=== PATIENT | female | born 1945 | race Caucasian/White ===

== ENCOUNTER 2018-07-04 09:51 | Emergency (ER) | payer MEDICARE ==
[2018-07-04] MEDS ORDERED: Metoprolol Tartrate IV* 1 MG/ML 5 ML VIAL IV ONE (10:08)
[2018-07-04] MEDS ORDERED: NS 0.9% 1000 ML* 1,000 ML IV ONE (10:08)
[2018-07-04 10:38] LABS: ABS Basophils 0 10^3/ul (0-0.2); ABS Eosinophils 0 10^3/ul (0-0.6); ABS Lymphocytes 0.9 10^3/ul (1.0-4.8); ABS Monocytes 0.5 10^3/ul (0-0.8); ABS Neutrophils 7.9 10^3/ul (1.5-7.7); ABS Nucleated RBC 0 10^3/ul; Eosinophil % 0.1 % (0-6); Hematocrit 46 % (35-47); Hemoglobin 15.8 g/dl (12.0-16.0); Lymphocyte % 9.9 % (25-47); Mean Corpuscular HGB Conc 35 g/dl (31-36); Mean Corpuscular Hemoglobin 32 pg (27-31); Mean Corpuscular Volume 91 fL (80-97); Mean Platelet Volume 8.6 um3 (7.4-10.4); Nucleated Red Blood Cells % 0.1; Platelet Count 243 10^3/ul (150-450); Red Blood Count 4.99 10^6/ul (4.00-5.40); Red Cell Distribution Width 13 % (10.5-15); White Blood Count 9.4 10^3/ul (3.5-10.8)
--- NOTE | 2018-07-04 10:46 | ED ---
HPI Cardiac - HPI Summary HPI Summary: Patient is a 72 y/o F w/ c/o nausea,diarrhea and palpitations. Patient had a right knee replacement around three weeks ago. She states that she has not been experiencing knee pain but notes that she has had nausea, diarrhea and general fatigue for the past few days. This morning, she reports high BP and palpitations. Patient measured her BP multiple times, highest systolic was 160. Chest pain, abdominal pain and SOB are denied. No Hx of irregular heartbeat is reported. Patient took metoprolol, amlodipine this morning. Patient is also on a diuretic, Keflex for frequent UTIs, and lovenox. Former smoker, stopped 26 years ago, o2 sat is 95 on RA. She denies difficulty walking. On triage, pain is denied, nothing is noted to aggravate/alleviate Sx. Home medications and allergies are reviewed. - History of Current Complaint Chief Complaint: EDDysrhythmPalp Stated Complaint: HIGH BP/HR Time Seen by Provider: 07/04/18 09:53 Hx Obtained From: Patient Onset/Duration: Started Hours Ago - palpitations this morning, Started Days Ago - nausea, diarrhea and general fatigue, Still Present Timing: Constant, Lasting Days - nausea, diarrhea and general fatigue Current Severity: None Pain Intensity: 0 Pain Scale Used: 0-10 Numeric - 0/10 Character: Other: - palpitations Aggravating Factor(s): Nothing Alleviating Factor(s): Nothing Associated Signs and Symptoms: Positive: Nausea, Other: - diarrhea, fatigue. Negative: Chest Pain, Shortness of Breath, Abdominal Pain, Vomiting - Additional Pertinent History Primary Care Physician: NUBIA - Allergy/Home Medications Allergies/Adverse Reactions: Allergies Allergy/AdvReac Type Severity Reaction Status Date / Time aspirin Allergy See Comment Verified 07/04/18 10:47 oxycodone Allergy Hives Verified 07/04/18 10:47 pollen extracts Allergy Sneezing Verified 07/04/18 10:47 valsartan Allergy Hives Verified 07/04/18 10:47 Home Medications: Home Medications Cephalexin 500 mg PO DAILY 07/04/18 [History Confirmed 07/04/18] Clonazepam 0.5 mg PO DAILY PRN 07/04/18 [History Confirmed 07/04/18] Cranberry 1 tab PO DAILY 07/04/18 [History Confirmed 07/04/18] Famotidine 40 mg PO DAILY 07/04/18 [History Confirmed 07/04/18] Fosamax (NF) 70 mg pe PO WEEKLY 07/04/18 [History Confirmed 07/04/18] Metoprolol Tartrate 100 mg PO DAILY 07/04/18 [History Confirmed 07/04/18] Potassium Chlor TAB* [Klor Con ER TAB 10 MEQ*] 20 meq PO BID 07/04/18 [History Confirmed 07/04/18] Probiotic 1 tab PO DAILY 07/04/18 [History Confirmed 07/04/18] Spironolactone [Aldactone 25 MG-] 25 mg PO BID 07/04/18 [History Confirmed 07/04] PMH/Surg Hx/FS Hx/Imm Hx Cardiovascular History: Reports: Hx Hypercholesterolemia, Hx Hypertension Denies: Hx Angina, Hx Coronary Artery Disease, Hx Myocardial Infarction, Hx Valvular Heart Disease Respiratory History: Denies: Hx Asthma, Hx Chronic Obstructive Pulmonary Disease (COPD) GI History: Reports: Other GI Disorders - GERD History: Reports: Other Problems/Disorders - 1 UTI in past Musculoskeletal History: Reports: Other Musculoskeletal History - osteoarthritis Denies: Hx Osteoporosis Sensory History: Reports: Hx Contacts or Glasses Opthamlomology History: Reports: Hx Contacts or Glasses - Cancer History Hx Chemotherapy: No Hx Radiation Therapy: No - Surgical History Surgery Procedure, Year, and Place: tonsilectomy (when patient was 6 years old) . patial left knee replacement 2014. vaginal hysterectomy 1995 Infectious Disease History: No Infectious Disease History: Denies: Traveled Outside the [place] in Last 30 Days - Family History Known Family History: Positive: Cardiac Disease - Social History Alcohol Use: None Substance Use Type: Reports: None Smoking Status (MU): Never Smoked Tobacco Review of Systems Positive: Fatigue Positive: Palpitations. Negative: Chest Pain Negative: Shortness Of Breath Positive: Diarrhea, Nausea. Negative: Abdominal Pain, Vomiting All Other Systems Reviewed And Are Negative: Yes Physical Exam - Summary Physical Exam Summary: Appearance: Well appearing, no pain distress Skin: warm, dry, reflects adequate perfusion; well-healed right knee replacement scar Head/face: normal Eyes: EOMI, CONSUELO ENT: mucous membranes moist Neck: supple, non-tender Respiratory: CTA, breath sounds present Cardiovascular: RRR, pulses symmetrical Abdomen: non-tender, soft Bowel Sounds: present Musculoskeletal: normal, strength/ROM intact, no BLE edema Neuro: normal, sensory motor intact, A&Ox3 Triage Information Reviewed: Yes Vital Signs On Initial Exam: Initial Vitals Temp Pulse Resp BP Pulse Ox 97.8 F 102 16 158/95 99 07/04/18 09:55 07/04/18 09:55 07/04/18 09:55 07/04/18 09:55 07/04/18 09:55 Vital Signs Reviewed: Yes Diagnostics - Vital Signs Vital Signs Temp Pulse Resp BP Pulse Ox 07/04/18 09:55 97.8 F 102 16 158/95 99 - Laboratory Result Diagrams: 07/04/18 10:23 07/04/18 10:23 Lab Statement: Any lab studies that have been ordered have been reviewed, and results considered in the medical decision making process. - EKG 1023 Cardiac Rate: NL - rate of 90 BPM EKG Rhythm: Sinus Rhythm ST Segment: Non-Specific Summary of EKG Findings: Normal Jeremiah. Normal Interval Re-Evaluation - Re-Evaluation First Eval Re-Evaluation Time: 11:30 Change: Improved Comment: Patient reports improvement in Sx. She will be discharged to home and is instructed to follow up with PCP. She is agreeable with this plan. Disposition - Course Course Of Treatment: Patient with pounding heartbeat and elevated blood pressure today without complaint of irregularity. Top heart rate was about 105. Blood pressure approached 160. That was improved here. She was given hydration for her GI symptoms with significant improvement. Her heart rate was down into the 80s after walking around the ER briskly with an O2 sat of 97% on room air. She denied any chest pain or shortness of breath and had been treated with Lovenox up until Saturday as she is postoperative. She will follow up closely with her primary care physician. - Differential Dx - Cardiopulmonary Differential Diagnoses - Cardiopulmonary: Other - Elevated blood pressure, palpitations, arrhythmia, dehydration, gastroenteritis, pulmonary embolism - Diagnoses Provider Diagnoses: Gastroenteritis, Elevated blood pressure reading Discharge - Sign-Out/Discharge Documenting (check all that apply): Patient Departure - discharge - Discharge Plan Condition: Improved Disposition: HOME Prescriptions: Loperamide CAP* [Imodium CAP*] 2 mg PO Q4H PRN #20 cap PRN Reason: Diarrhea Ondansetron HCl [Zofran] 4 mg PO TID PRN #12 tablet PRN Reason: Nausea Patient Education Materials: Gastroenteritis (ED) Referrals: Stalin Milian MD [Primary Care Provider] - Additional Instructions: Call today to schedule prompt follow-up with her primary care physician. Return with chest pain, difficulty breathing, unable to keep down liquids, worse , new symptoms or other concerns. - Billing Disposition and Condition Condition: IMPROVED Disposition: Home - Attestation Statements Document Initiated by Scribe: Yes Documenting Scribe: Iker Osorio Provider For Whom Natashaibe is Documenting (Include Credential): Ovi Cook MD Scribe Attestation: Iker Lyons, scribed for Ovi Cook MD on 07/04/18 at 1155. Scribe Documentation Reviewed: Yes Provider Attestation: The documentation as recorded by the Iker del castillo accurately reflects the service I personally performed and the decisions made by me, Ovi Cook MD
[2018-07-04] MEDS ORDERED: Ondansetron INJ* 2 MG/ML VIAL IV ONE (10:48)
[2018-07-04] MEDS ORDERED: Ondansetron INJ* 2 MG/ML VIAL ONE (10:49)
[2018-07-04 11:06] LABS: EGFR Non-African American 67.8 (>60)
[2018-07-04 12:04] VITALS: BP 139/77
== END 2018-07-04 12:02 | disposition home or self-care (01) ==
LOC: ED 09:51
DX: K52.9 Noninfective gastroenteritis and colitis, unspecified (principal); I10 Essential (primary) hypertension; R00.2 Palpitations; Z87.440 Personal history of urinary (tract) infections; Z96.653 Presence of artificial knee joint, bilateral; Z88.6 Allergy status to analgesic agent; Z88.5 Allergy status to narcotic agent; Z88.8 Allergy status to other drugs, medicaments and biological substances; Z87.891 Personal history of nicotine dependence
CPT/HCPCS: 36415; 80053; 84484; 85025; 93005; 96374; 99283; J2405

== ENCOUNTER 2018-07-29 17:23 | Emergency (ER) | payer MEDICARE ==
--- NOTE | 2018-07-29 17:40 | ED ---
HPI Chest Pain - HPI Summary HPI Summary: The pt is a 72 y/o female presenting to [facility] c/o midsternal chest heaviness since this afternoon. The sx started with palpitations. She notes elevated blood pressure and heart rate as recorded below. The non-radiating pain is rated 3-4/10 in severity. She notes nausea but denies calf pain, and LE pain. Pt had right TKR on 06/16/18. She also reports chronic UTI's with 5 day hx increased frequency and pain with urination. Pt takes daily cephalexin for urinary tract infection suppression per Dr. Olson. When the UTI sxs began pt increased the cephalexin to tid without improvement in symptoms. She called her PCP yesterday who instructed her to DC cephalexin and to send in a urine sample today 07/29/2018. Pt developed the chest heaviness and came to the ED. PMHx: HTN ,HLD No DM, nonsmoker. [facility] her [facility]. Ot was in [facility] on 07/04/18 with similar symptoms and DC'd home. Patient's home vital sign recordings: Date Systolic BP Diastolic BP HR (bpm) 07/21/2018 124 82 73 2017 from 16:30 hrs 187 90 112 16:40 hrs 165 90 96 - 147 86 96 - 172 88 97 - 180 101 114 Home Medications Medication Instructions Recorded Confirmed Type Fexofenadine (NF) [[place] 180 180 mg PO DAILY 12/25/12 07/04/18 History (NF)] Hydrochlorothiazide TAB* 12.5 mg PO DAILY 12/25/12 07/04/18 History [Hydrodiuril TAB*] Simvastatin [Zocor] 10 mg PO QPM 12/25/12 07/04/18 History amLODIPine TAB* [Norvasc 5 mg TAB*] 5 mg PO DAILY 12/25/12 07/04/18 History Cephalexin 500 mg PO DAILY 07/04/18 07/04/18 History Clonazepam 0.5 mg PO DAILY PRN 07/04/18 07/04/18 History Cranberry 1 tab PO DAILY 07/04/18 07/04/18 History Famotidine 40 mg PO DAILY 07/04/18 07/04/18 History Fosamax (NF) 70 mg pe PO WEEKLY 07/04/18 07/04/18 History Loperamide CAP* [Imodium CAP*] 2 mg PO Q4H PRN #20 cap 07/04/18 Rx Metoprolol Tartrate 100 mg PO DAILY 07/04/18 07/04/18 History Ondansetron HCl [Zofran] 4 mg PO TID PRN #12 tablet 07/04/18 Rx Potassium Chlor TAB* [Klor Con ER 20 meq PO BID 07/04/18 07/04/18 History TAB 10 MEQ*] Probiotic 1 tab PO DAILY 07/04/18 07/04/18 History Spironolactone [Aldactone 25 MG-] 25 mg PO BID 07/04/18 07/04/18 History - History of Current Complaint Chief Complaint: EDDysrhythmPalp Time Seen by Provider: 07/29/18 17:32 Hx Obtained From: Patient Onset/Duration: Started Hours Ago - this afternoon, Still Present Time of Onset: 15:30 Timing: Constant Initial Severity: Moderate Current Severity: Moderate Pain Intensity: 4 Pain Scale Used: 0-10 Numeric Chest Pain Location: Mid Sternal Chest Pain Radiates: No Character: Heaviness Aggravating Factor(s): Nothing Alleviating Factor(s): Nothing Associated Signs and Symptoms: Positive: Negative - LE pain, Nausea. Negative: Calf Pain/Swelling - Risk Factors Pulmonary Embolism Risk Factors: Recent Surgery - Additional Pertinent History Primary Care Physician: NUBIA - Allergy/Home Medications Allergies/Adverse Reactions: Allergies Allergy/AdvReac Type Severity Reaction Status Date / Time aspirin Allergy See Comment Verified 07/04/18 10:47 oxycodone Allergy Hives Verified 07/04/18 10:47 pollen extracts Allergy Sneezing Verified 07/04/18 10:47 valsartan Allergy Hives Verified 07/04/18 10:47 Home Medications: Home Medications Alendronate (NF) [Fosamax (NF)] 70 mg PO WEEKLY 07/29/18 [History Confirmed ] Cephalexin CAP* [Keflex 500 CAP*] 500 mg PO QPM 07/29/18 [History Confirmed ] Cranberry 500 mg PO DAILY 07/29/18 [History Confirmed 07/29/18] Famotidine TAB* [Pepcid 20 MG TAB*] 40 mg PO DAILY 07/29/18 [History Confirmed 07/29/18] Fexofenadine (NF) [[place] 180 (NF)] 180 mg PO DAILY PRN 07/29/18 [History Confirmed 07/29/18] Lactobacillus Acidophilus [Probiotic] 1 cap PO BID 07/29/18 [History Confirmed 07/29/18] Metoprolol Succinate XL TAB* [Toprol XL TAB*] 100 mg PO DAILY 07/29/18 [History Confirmed 07/29/18] Simvastatin TAB(NF) [Zocor 10 MG (NF)] 10 mg PO QPM 07/29/18 [History Confirmed 07/29/18] Spironolactone TAB* [Aldactone TAB 25 MG*] 25 mg PO BID 07/29/18 [History Confirmed 07/29/18] amLODIPine TAB* [Norvasc 5 mg TAB*] 5 mg PO DAILY 07/29/18 [History Confirmed ] clonazePAM TAB(*) [Klonopin TAB(*)] 0.5 mg PO BEDTIME PRN 07/29/18 [History Confirmed 07/29/18] PMH/Surg Hx/FS Hx/Imm Hx Previously Healthy: No Endocrine/Hematology History: Denies: Hx Diabetes Cardiovascular History: Reports: Hx Hypercholesterolemia, Hx Hypertension Denies: Hx Angina, Hx Coronary Artery Disease, Hx Myocardial Infarction, Hx Valvular Heart Disease Respiratory History: Denies: Hx Asthma, Hx Chronic Obstructive Pulmonary Disease (COPD) GI History: Reports: Hx Gastroesophageal Reflux Disease History: Reports: Other Problems/Disorders - multiple UTI's in past, Klebsiella, E Coli, proteus on urinary suppression Musculoskeletal History: Reports: Hx Arthritis, Other Musculoskeletal History - osteoarthritis Denies: Hx Osteoporosis Sensory History: Reports: Hx Contacts or Glasses Opthamlomology History: Reports: Hx Contacts or Glasses - Cancer History Hx Chemotherapy: No Hx Radiation Therapy: No - Surgical History Surgery Procedure, Year, and Place: tonsilectomy (when patient was 6 years old) . patial left knee replacement 2014. vaginal hysterectomy 1995. right knee replacement 06/16/18, [place] Infectious Disease History: No Infectious Disease History: Denies: Traveled Outside the [place] in Last 30 Days - Family History Known Family History: Positive: Cardiac Disease, Other - PE in mother, [place] - Social History Occupation: Retired - nurse Lives: With Family Alcohol Use: None Substance Use Type: Reports: None Smoking Status (MU): Former Smoker Review of Systems Constitutional: Negative Positive: Chest Pain Respiratory: Negative Positive: Nausea Positive: dysuria, frequency, pain - with urination Musculoskeletal: Negative - Calf pain, LE pain Skin: Negative Neurological: Negative Psychological: Normal All Other Systems Reviewed And Are Negative: Yes Physical Exam - Summary Physical Exam Summary: Appearance: Well-appearing, moderate pain distress, well-nourished Skin: Warm, color reflects adequate perfusion, dry Head: Normal Head/Face inspection, atraumatic Eyes: Conjunctiva clear ENT: Normal inspection Neck: Supple, no nodes, no JVD Respiratory: Lungs clear, normal breath sounds, no respiratory distress Cardio: RRR, No murmur, pulses normal, brisk capillary refill Abdomen: Soft, nontender Bowel sounds: Present Musculoskeletal: Strength Intact/ROM intact, no calf tenderness, no edema. right knee incision dry, intact, without redness, warmth or swelling Psychological: Normal Neuro: Alert, muscle tone normal, no focal deficit Triage Information Reviewed: Yes Vital Signs On Initial Exam: Initial Vitals Temp Pulse Resp BP Pulse Ox 98.3 F 114 18 163/86 98 07/29/18 17:25 07/29/18 17:25 07/29/18 17:25 07/29/18 17:25 07/29/18 17:25 Vital Signs Reviewed: Yes Diagnostics - Vital Signs Vital Signs Temp Pulse Resp BP Pulse Ox 07/29/18 17:25 98.3 F 114 18 163/86 98 - Laboratory Result Diagrams: 07/29/18 18:07 07/29/18 18:07 Lab Statement: Any lab studies that have been ordered have been reviewed, and results considered in the medical decision making process. - Radiology CXR Radiology Interpretation Completed By: ED Physician Summary of Radiographic Findings: Preliminary interpretation: No acute disease. - CT Chest/Thorax CTA CT Interpretation Completed By: Radiologist Summary of CT Findings: IMPRESSION: 1. No pulmonary emboli. 2. Left upper lobe pulmonary nodule. Based on current Sofya criteria, consider CT, PET/CT , or tissue biopsy at 3 months. The ED physician reviewed this radiology report. - EKG 17:29 Cardiac Rate: Tachycardia - 106 bpm EKG Rhythm: Sinus Tachycardia EKG Comparison: No Significant Change - Compared to 07/04/18 Summary of EKG Findings: Normal IVCT, Normal QTC, L axis deviation (-25) Re-Evaluation - Re-Evaluation First Eval Re-Evaluation Time: 19:35 Change: Improved Comment: chest pain is resolved spontaneosly. Advised of need for CTA with CP and recent surg and fam hx PE. Pt agrees. Pt still tachy 105, BP145/79. Thinks she may have a UTI, usually takes keflex daily prophylactically. States she submitted a urine sample here, but it was into "a hat", so wants to provide a better clean catch specimen. No abd pain, N, V. Will give another liter of IV NS. Second Eval Re-Evaluation Time: 20:59 Change: Improved Comment: discussed antibiotic choice to treat probable UTI. Reviewed prior urine cultures and sensitivities. Pt does not want to take cipro due to "black box warnings". Will try Bactrim, although it has made her nauseous in the past. Will give first dose Bactrim now and 40MEQ KCL Third Eval Re-Evaluation Time: 21:50 Change: Improved Comment: remains chest pain free. HR 99, BP 130's systolic. No N, V after Bactrim. Advised second troponin is zero. Agrees to discharge. Chest Pain Course/Dx - Course Course Of Treatment: A 72 year-old F presents to the ED with a CC of midsternal chest heaviness since this afternoon. She notes palpitations, elevated blood pressure and heart rate measured at home, nausea and increased frequency of urinartion and pain with urination and hx chronic UTIs on daily suppressive cephalexin. Pt is s/p right TKR on 06/16/18. She denies calf pain, and LE pain.A physical exam is unremarkable. A CXR reveals no acute disease on preliminary reading by Dr. Wolfe. A chest/thorax CTA reveals no pulmonary emboli an a left upper lobe pulmonary nodule. An EKG reveals sinus tachycardia with no acute changes. Pt had two troponin levels that were zero. Her potassium was 3.4 and replaced with KCl 40 MEQ po. In the ED course, pt was given Iodixanol 72 ml IV, N.s 0.9% 2000 ml IV, and Ondansetron 4mg IV, KCL po and Bactrim DS which improved her symptoms. Pt not given ASA due to possible allergy. Patient will be discharged with a final Dx of CP, palpitations, HTN in poor control and UTI. Pt is agreeable with this plan. Allergies noted. - Chest Pain Differential Diagnosis/HQI/PQRI: Acute UT, ACS, CHF, GI Disease, Pulmonary Embolism - Diagnoses Provider Diagnoses: Chest pain, UTI (urinary tract infection), Heart palpitations, Hypertension, poor control, Hypokalemia Discharge - Sign-Out/Discharge Documenting (check all that apply): Patient Departure - DC - Discharge Plan Condition: Stable Disposition: HOME Prescriptions: Ondansetron ODT TAB* [Zofran 4 MG Odt TAB*] 4 mg PO BID PRN #20 tab.odt PRN Reason: Nausea Sulfamethox/Trimethoprim DS* [Bactrim DS 800/160 TAB*] 1 tab PO BID #20 tab Patient Education Materials: Chest Pain (ED), Urinary Tract Infection in Women (ED) Referrals: Mir Olson MD [Medical Doctor] - 2 Days Stalin Milian MD [Primary Care Provider] - 2 Days Additional Instructions: You were evaluated for chest pain, hypertension and tachycardia while in the ER today. We did not find any serious cause for the chest pain today. We have given you a copy of the CTA report showing no pulmonary embolus. We have submitted a urine culture. We gave you the first dose of Bactrim DS, which you should take twice a day for 10 days. You may take the Bactrim with ondansetron, so you won't be nauseous. But you should have definite follow up to know the organism and sensitivities based on the culture to know if you should continue the Bactrim. You were also given one dose of potassium 40 MEQ for a K+ of 3.4, (normal is 3.5). Continue all of your current medications. Follow up with Dr. Rukhsana Gant MD in 2 days. Also follow up with Dr. Olson in 2 days. Return to ED for any new or worsening symptoms. - Billing Disposition and Condition Condition: STABLE Disposition: Home - Attestation Statements Document Initiated by Scribe: Yes Documenting Scribe: Merry Romano Provider For Whom Scribe is Documenting (Include Credential): Dr. Macarena Wolfe MD Scribe Attestation: IMerry , scribed for Dr. Macarena Wolfe MD on 07/30/18 at 0247. Scribe Documentation Reviewed: Yes Provider Attestation: The documentation as recorded by the scribeMerry accurately reflects the service I personally performed and the decisions made by me, Dr. Macarena Wolfe MD Status of Scribe Document: Viewed
[2018-07-29 18:18] LABS: ABS Basophils 0 10^3/ul (0-0.2); ABS Eosinophils 0.1 10^3/ul (0-0.6); ABS Lymphocytes 1.6 10^3/ul (1.0-4.8); ABS Monocytes 0.5 10^3/ul (0-0.8); ABS Nucleated RBC 0 10^3/ul; Eosinophil % 0.7 %; Hematocrit 44 % (35-47); Hemoglobin 15.2 g/dl (12.0-16.0); Lymphocyte % 17.2 %; Mean Corpuscular HGB Conc 35 g/dl (31-36); Mean Corpuscular Hemoglobin 32 pg (27-31); Mean Corpuscular Volume 92 fL (80-97); Mean Platelet Volume 8.6 fL (7.4-10.4); Nucleated Red Blood Cells % 0; Platelet Count 186 10^3/ul (150-450); Red Blood Count 4.79 10^6/ul (4.00-5.40); Red Cell Distribution Width 13 % (10.5-15); White Blood Count 9.2 10^3/ul (3.5-10.8)
[2018-07-29] MEDS ORDERED: Ondansetron INJ* 2 MG/ML VIAL IV ONE (18:18)
[2018-07-29 18:26] LABS: INR 0.95 (0.77-1.02)
[2018-07-29] MEDS ORDERED: NS 0.9% 1000 ML* 1,000 ML BOLUS SCH (18:30)
[2018-07-29 18:37] LABS: EGFR Non-African American 60.9 (>60)
--- OUTSIDE RECORDS SUMMARY | 2018-07-29 18:37 | XMS REPORT | Continuity of Care Document ---
:1945 External Reference #:[id number] Author Name Stalin Milian M.D. Address [address] [place] [address] [place] [address] Care Team Providers Name Role Phone Stalin Milian III, MD Primary Care Physician Unavailable Payers Type Date Identification Numbers Payment Provider Subscriber Policy Number: [id number] Medicare Elva Cortez PayID: [id number] [address] [place] [address] Policy Number: [id number] [facility] lEva Cortez PayID: [id number] [address] [place] [address] Advance Directives Description No Information Available Problems Date Description Provider Status Onset: 05/29/2017 Postmenopausal osteoporosis Stalin Milian M.D. Active Onset: 05/29/2017 Impaired fasting glycaemia Stalin Milian M.D. Active Onset: 05/08/2017 Degenerative joint disease involving Stalin Milian M.D. Active multiple joints Onset: 05/08/2017 Gastroesophageal reflux disease Stalin Milian M.D. Active Onset: 05/08/2017 Hyperlipidemia Stalin Milian M.D. Active Onset: 05/08/2017 Essential hypertension Stalin Milian M.D. Active Family History Description No Information Available Social History Type Date Description Comments Sex Unknown Marital Status ETOH Use Denies alcohol use Tobacco Use Start: Unknown End: Patient is a former Quit 1985; max 1 Unknown smoker ppd, began age 19 Smoking Status Reviewed: 07/09/18 Patient is a former Quit 1985; max 1 smoker ppd, began age 19 Exercise Exercises regularly stretch band routine Type/Frequency most days Allergies, Adverse Reactions, Alerts Date Description Reaction Status Severity Comments 05/08/2017 Diovan Active Moderate Hives 05/08/2017 Oxycodone Active Moderate hives 05/08/2017 Aspirin Active chooses not to take 05/08/2017 Ibuprofen Active 05/08/2017 Naproxen Active Medications Medication Date Status Form Strength Qnty SIG Indications Ordering Provider Derick Mendoza 05/08 Active Capsules 10Meq 180ca 2 by mouth Stalin E. /2017 ER ps once a day Kei Milian Metoprolol 05/29 Active Tablets 100mg 90tab Take One I10 Stalin E. Succinate ER 24HR s Tablet By Rukhsana, Mouth Every M.D. Day Alendronate Sodium 05/29 Active Tablets 70mg 12tab Take 1 M81.0 Stalin E. s Tablet By Rukhsana, Mouth Every M.D. Week Multi Complete 05/08 Active Capsules 30cap daily Stalin E. s Kei Milian Famotidine 05/08 Active Tablets 40mg 90tab Take One Stalin E. s Tablet By Rukhsana, Mouth Every M.D. Day Spironolactone Active Tablets 25mg 180ta 1 by mouth Stalin E. / bs twice daily Kie Milian Simvastatin Active Tablets 10mg 90tab take 1 Stalin E. / s tablet by Rukhsana, mouth at M.D. bedtime Clonazepam Active Tablets 0.5mg 30tab 1 by mouth Stalin E. / s as needed anuj Milian sleep M.DAudrey Ansley Allergy Active Tablets 60mg 1 by mouth Unknown /0000 every day Cephalexin Active Capsules 500mg 1 by mouth Unknown /0000 daily in pm. Hydrochlorothiazid Active Capsules 12.5mg 90cap Take One Stalin E. e /0000 s Capsule By Rukhsana, Mouth Every M.D. Day Amlodipine Active Tablets 5mg 90tab Take One Stalin E. Besylate / s Tablet By Rukhsana, Mouth Every M.D. Day Cranberry Active Tablets 450mg 1 by mouth Unknown /0000 every day Calcium 600 Active Tablets 600mg 1 by mouth Unknown /0000 every day Estrace Active Cream 0.1mg/GM use one Unknown /0000 applicator full two times weekly Atenolol Hx Tablets 100mg 1 1/2 tabs I10 Unknown /0000 by mouth - every day 05/29 Omeprazole Hx Capsules 20mg 1 by mouth Unknown /0000 DR every day - 05/08 Klor-Con M20 Hx Tablets 20Meq 90tab 1 by mouth Stalin Thapa /0000 FARNAZ walker every day Libra Milian M.D. 05/08 Immunizations CPT Code Status Date Vaccine Reaction Lot # [id number] Given 06/01/2018 Fluzone High Dose 80225 Given 05/08/2017 Pneumococcal Conjugate Vaccine 13 no reaction [id number] Valent For Intramuscular Use 17132 Given 03/14/2012 Pneumonia Vaccine 24497 Given 02/01/2012 Tdap - Tetanus/Diptheria/Acellular Pertussis Vital Signs Date Vital Result Comment 07/09/2018 9:12am Height 64.75 inches 5'4.75" Weight 161.00 lb Heart Rate 81 /min BP Systolic Sitting 136 mmHg BP Diastolic Sitting 90 mmHg O2 % BldC Oximetry 94 % BMI (Body Mass Index) 27.0 kg/m2 05/08/2018 9:22am Height 64.75 inches 5'4.75" Weight 171.00 lb Heart Rate 68 /min BP Systolic 118 mmHg BP Diastolic 68 mmHg O2 % BldC Oximetry 95 % BMI (Body Mass Index) 28.7 kg/m2 11/05/2017 9:06am Weight 175.00 lb Heart Rate 60 /min BP Systolic Sitting 138 mmHg BP Diastolic Sitting 82 mmHg O2 % BldC Oximetry 97 % 05/29/2017 9:05am Height 65 inches 5'5" Weight 176.25 lb Heart Rate 65 /min BP Systolic Sitting 140 mmHg BP Diastolic Sitting 78 mmHg Body Temperature 97.5 F O2 % BldC Oximetry 97 % BMI (Body Mass Index) 29.3 kg/m2 05/08/2017 9:12am Height 65 inches 5'5" Weight 179.25 lb Heart Rate 61 /min BP Systolic Sitting 144 mmHg BP Diastolic Sitting 80 mmHg Body Temperature 97.9 F O2 % BldC Oximetry 96 % BMI (Body Mass Index) 29.8 kg/m2 Results Test Date Facility Test Result H/L Range Note Comp Metabolic Panel 07/04/2018 [facility] Sodium 137 mmol/L N 135-[address] [place] [address] [phone] Potassium 3.5 mmol/L N 3.5-5.0 Chloride 103 mmol/L N 101-111 Co2 Carbon Dioxide 23 mmol/L N 22-32 Anion Gap 11 mmol/L N 2-11 Glucose 141 mg/dL High 70-100 Blood Urea Nitrogen 19 mg/dL N 6-24 Creatinine 0.83 mg/dL N 0.51-0.95 BUN/Creatinine Ratio 22.9 High 8-20 Calcium 10.2 mg/dL N 8.6-10.3 Total Protein 7.5 g/dL N 6.4-8.9 Albumin 4.5 g/dL N 3.2-5.2 Globulin 3.0 g/dL N 2-4 Albumin/Globulin Ratio 1.5 N 1-3 Total Bilirubin 0.50 mg/dL N 0.2-1.0 Alkaline Phosphatase 63 U/L N 34-104 Alt 21 U/L N 7-52 Ast 19 U/L N 13-39 Egfr Non- 67.8 >60 Egfr 82.0 >60 1 Laboratory test 07/04/2018 [facility] Troponin-I 0.00 ng/mL < 0.[address] (TnI) [place] [address] [phone] CBC Auto Diff 07/04/2018 [facility] White Blood 9.4 N 3.5- 10.[address] Count 10^3/[place] [address] [phone] Red Blood Count 4.99 10^6/uL N 4.00-5.40 Hemoglobin 15.8 g/dL N 12.0-16.0 Hematocrit 46 % N 35-47 Mean Corpuscular Volume 91 fL N 80-97 Mean Corpuscular Hemoglobin 32 pg High 27-31 Mean Corpuscular HGB Conc 35 g/dL N 31-36 Red Cell Distribution Width 13 % N 10.5-15 Platelet Count 243 10^3/uL N 150-450 Mean Platelet Volume 8.6 um3 N 7.4-10.4 Abs Neutrophils 7.9 10^3/uL High 1.5-7.7 Abs Lymphocytes 0.9 10^3/uL Low 1.0-4.8 Abs Monocytes 0.5 10^3/uL N 0-0.8 Abs Eosinophils 0 10^3/uL N 0-0.6 Abs Basophils 0 10^3/uL N 0-0.2 Abs Nucleated RBC 0 10^3/uL Granulocyte % 84.1 % High 38-83 Lymphocyte % 9.9 % Low 25-47 Monocyte % 5.4 % N 0-7 Eosinophil % 0.1 % N 0-6 Basophil % 0.5 % N 0-2 Nucleated Red Blood Cells % 0.1 Laboratory test 05/02/2018 [facility] Hemoglobin A1c 5.3 % N 4.0-5.[address] (Glyco HGB) [place] [address] [phone] Comp Metabolic 05/02/2018 [facility] Sodium 140 N 135-[address] mmol/[place] [address] [phone] Potassium 4.0 mmol/L N 3.5-5.0 Chloride 105 mmol/L N 101-111 Co2 Carbon Dioxide 29 mmol/L N 22-32 Anion Gap 6 mmol/L N 2-11 Glucose 106 mg/dL High 70-100 Blood Urea Nitrogen 22 mg/dL N 6-24 Creatinine 0.92 mg/dL N 0.51-0.95 BUN/Creatinine Ratio 23.9 High 8-20 Calcium 9.4 mg/dL N 8.6-10.3 Total Protein 6.9 g/dL N 6.4-8.9 Albumin 4.5 g/dL N 3.2-5.2 Globulin 2.4 g/dL N 2-4 Albumin/Globulin Ratio 1.9 N 1-3 Total Bilirubin 0.70 mg/dL N 0.2-1.0 Alkaline Phosphatase 62 U/L N 34-104 Alt 20 U/L N 7-52 Ast 20 U/L N 13-39 Egfr Non- 60.2 >60 Egfr 72.8 >60 3 Lipid Profile 05/02/2018 [facility] Triglycerides 100 mg/dL 4 (Trig/Chol/HDL) [address] [place] [address] [phone] Cholesterol 171 mg/dL 5 HDL Cholesterol 42.4 mg/dL 6 LDL Cholesterol 109 mg/dL 7 CBC Auto Diff 05/02/2018 [facility] White Blood 7.1 10^3/uL N 3.5-10.[address] [place] [address] [phone] Red Blood Count 5.10 10^6/uL N 4.00-5.40 Hemoglobin 16.5 g/dL High 12.0-16.0 Hematocrit 48 % High 35-47 Mean Corpuscular Volume 93 fL N 80-97 Mean Corpuscular Hemoglobin 32 pg High 27-31 Mean Corpuscular HGB Conc 35 g/dL N 31-36 Red Cell Distribution Width 13 % N 10.5-15 Platelet Count 168 10^3/uL N 150-450 Mean Platelet Volume 8.8 um3 N 7.4-10.4 Abs Neutrophils 4.7 10^3/uL N 1.5-7.7 Abs Lymphocytes 1.8 10^3/uL N 1.0-4.8 Abs Monocytes 0.5 10^3/uL N 0-0.8 Abs Eosinophils 0.1 10^3/uL N 0-0.6 Abs Basophils 0 10^3/uL N 0-0.2 Abs Nucleated RBC 0.1 10^3/uL Granulocyte % 66.4 % N 38-83 Lymphocyte % 25.1 % N 25-47 Monocyte % 7.0 % N 0-7 Eosinophil % 1.0 % N 0-6 Basophil % 0.5 % N 0-2 Nucleated Red Blood Cells % 0.9 Laboratory test 05/29/2017 [facility] Hemoglobin A1c 5.6 5-7 finding Comp Metabolic Panel 05/22/2017 [facility] Sodium 137 mmol/L N 133-[address] [place] [address] [phone] Potassium 3.9 mmol/L N 3.5-5.0 Chloride 103 mmol/L N 101-111 Co2 Carbon Dioxide 28 mmol/L N 22-32 Anion Gap 6 mmol/L N 2-11 Glucose 134 mg/dL High 70-100 Blood Urea Nitrogen 18 mg/dL N 6-24 Creatinine 0.86 mg/dL N 0.51-0.95 BUN/Creatinine Ratio 20.9 High 8-20 Calcium 9.5 mg/dL N 8.6-10.3 Total Protein 7.1 g/dL N 6.4-8.9 Albumin 4.4 g/dL N 3.2-5.2 Globulin 2.7 g/dL N 2-4 Albumin/Globulin Ratio 1.6 N 1-3 Total Bilirubin 0.60 mg/dL N 0.2-1.0 Alkaline Phosphatase 72 U/L N 34-104 Alt 23 U/L N 7-52 Ast 21 U/L N 13-39 Egfr Non- 65.2 N >60 Egfr 83.9 N >60 8 Lipid Profile 05/22/2017 [facility] Triglycerides 134 mg/dL N 9 (Trig/Chol/HDL) [address] [place] [address] [phone] Cholesterol 156 mg/dL N 10 HDL Cholesterol 41.1 mg/dL N 11 LDL Cholesterol 88 mg/dL N 12 Laboratory 05/22/2017 [facility] Hepatitis C Nonreactive N Nonreactive test finding [address] [place] [address] [phone] 1 Because ethnic data is not always readily available, this report includes an eGFR for both -Americans and non- Americans. The National Kidney Disease Education Program (NKDEP) does not endorse the use of the MDRD equation for patients that are not between the ages of 18 and 70, are , have extremes of body size, muscle mass, or nutritional status, or are non- or non-. According to the National Kidney Foundation, irrespective of diagnosis, the stage of the disease is based on the level of kidney function: Stage Description GFR(mL/min/1.73 m(2)) 1 Kidney damage with normal or decreased GFR 90 2 Kidney damage with mild decrease in GFR 60-89 3 Moderate decrease in GFR 30-59 4 Severe decrease in GFR 15-29 5 Kidney failure <15 (or dialysis) 2 Therapeutic target for the treatment of diabetes mellitus patients is <7% HBA1C, and in selective patients <6.0%. Please refer to [employer] diabetic care guidelines for further information. 3 Because ethnic data is not always readily available, this report includes an eGFR for both -Americans and non- Americans. The National Kidney Disease Education Program (NKDEP) does not endorse the use of the MDRD equation for patients that are not between the ages of 18 and 70, are , have extremes of body size, muscle mass, or nutritional status, or are non- or non-. According to the National Kidney Foundation, irrespective of diagnosis, the stage of the disease is based on the level of kidney function: Stage Description GFR(mL/min/1.73 m(2)) 1 Kidney damage with normal or decreased GFR 90 2 Kidney damage with mild decrease in GFR 60-89 3 Moderate decrease in GFR 30-59 4 Severe decrease in GFR 15-29 5 Kidney failure <15 (or dialysis) 4 Desirable: <150 Borderline High: 150-199 High: 200-499 Very High: >500 5 Desirable: <200 Borderline High: 200-239 High: >239 6 Low: <40 Desirable: 40-60 High: >60 7 Desirable: <100 Near Optimal: 100-129 Borderline High: 130-159 High: 160-189 Very High: >189 8 Because ethnic data is not always readily available, this report includes an eGFR for both -Americans and non- Americans. The National Kidney Disease Education Program (NKDEP) does not endorse the use of the MDRD equation for patients that are not between the ages of 18 and 70, are , have extremes of body size, muscle mass, or nutritional status, or are non- or non-. According to the National Kidney Foundation, irrespective of diagnosis, the stage of the disease is based on the level of kidney function: Stage Description GFR(mL/min/1.73 m(2)) 1 Kidney damage with normal or decreased GFR 90 2 Kidney damage with mild decrease in GFR 60-89 3 Moderate decrease in GFR 30-59 4 Severe decrease in GFR 15-29 5 Kidney failure <15 (or dialysis) 9 Desirable <150 Borderline high 150-199 High 200-499 Very High >500 10 Desirable <200 Borderline high 200-239 High >239 11 Low <40 Desirable: 40-60 High: >60 12 Desirable: <100 mg/dL Near Optimal: 100-129 mg/dL Borderline High: 130-159 mg/dL High: 160-189 mg/dL Very High: >189 mg/dL Procedures Date Code Description Status 11/25/2017 [id number] Mammogram Completed 05/13/2017 [id number] Bone Mineral Density Test Completed 11/08/2016 [id number] Mammogram Completed 12/08/2015 98455 ECHO Transthorasic Realtime 2D W Doppler & Color Flow Completed Hosp 12/08/2015 21124 Treadmill Interp/Report Only Completed 12/08/2015 72550 Stress Test Supervsn W/Out I/R Completed 12/08/2015 34858 EKG, Interpretation Only Completed 10/27/2015 [id number] Mammogram Completed 04/11/2011 04219 Xray Knee 3 Views Completed 04/11/2011 88712 Rad Exam; Knee, Ap&L Completed 01/13/2010 [id number] Colonoscopy Completed 09/18/2008 89160 Treadmill Interp/Report Only Completed 09/18/2008 72507 Treadmill Interp/Report Only Completed 09/18/2008 19489 Stress Test Supervsn W/Out I/R Completed Encounters Type Date Location Provider Dx Diagnosis Office Visit 11/05/2017 [facility] Stalin Milian, I10 Essential ( primary) 9:00a Cortes Smyth M.D. hypertension Graham R73.01 Impaired fasting glucose E78.5 Hyperlipidemia, unspecified K21.9 Gastro-esophageal reflux disease without esophagitis M81.0 Age-related osteoporosis w/o current pathological fracture Office Visit 05/29/2017 9:00a [facility] Rita Hunter81.0 Age-related Cortes Milian M.D. osteoporosis w/o [place] current pathological fracture K21.9 Gastro-esophageal reflux disease without esophagitis I10 Essential (primary) hypertension R73.01 Impaired fasting glucose Office Visit 05/08/2017 9:20a [facility] Rita Thapa I10 Essential ( primary) Cortes Milian M.D. hypertension Graham E78.5 Hyperlipidemia, unspecified K21.9 Gastro-esophageal reflux disease without esophagitis Z13.820 Encounter for screening for osteoporosis Z11.59 Encounter for screening for other viral diseases M15.0 Primary generalized (osteo)arthritis Z23 Encounter for immunization Office Visit 12/08/2015 1:37p [facility] Reji Amado, R00.2 [facility] E78.5 Hyperlipidemia, unspecified I10 Essential (primary) hypertension Office Visit 12/07/2015 1:36p [facility] Jaky Rooth, DO R11.0 [facility] E78.5 Hyperlipidemia, unspecified R00.2 Palpitations I10 Essential (primary) hypertension Office Visit 04/11/2011 1:30p [facility] Strange, 716.96 Arthropathy [facility] Plan of Treatment Future Appointment(s):11/07/2018 9:00 am - Stalin Milian M.D. at [facility] - Zypbzdhmg45/07/2018 - Stalin Milian M.D.R00.0 Tachycardia, unspecifiedComments:Transient "rapid" heart rate felt as a faster "pounding" in her ears 07/04. Sx passed after about 30min and ER eval, labs ok. (+) GI upset sx the day before with some watery stools, nausea sx. No fevers , chills. No recurrent sx at present and her GI sx resolved. Observation advised. No ER records on chart as yet; will review when available. Labs okFollow up:October as scheduled or prn
--- OUTSIDE RECORDS SUMMARY | 2018-07-29 18:37 | XMS REPORT ---
:1945 External Reference #:[id number] Author Organization [facility] Address [address] [place] [address] Phone [phone] Care Team Providers Name Role Phone Stalin Milian III, MD Primary Care Physician Unavailable Payers Type Date Identification Numbers Payment Provider Subscriber Medicare Primary Policy Number: [id number] Medicare Elva Cortez PayID: [id number] [address] [place] [address] [facility] Policy Number: [id number] [facility] Elva Cortez PayID: [id number] [address] [place] [address] Problems Date Description Provider Status Onset: 05/29/2017 Postmenopausal osteoporosis Stalin Milian M.D. Active Onset: 05/29/2017 Impaired fasting glycaemia Stalin Milian M.D. Active Onset: 05/08/2017 Degenerative joint disease involving Stalin Milian M.D. Active multiple joints Onset: 05/08/2017 Gastroesophageal reflux disease Stalin Milian M.D. Active Onset: 05/08/2017 Hyperlipidemia Stalin Milian M.D. Active Onset: 05/08/2017 Essential hypertension Stalin Milian M.D. Active Social History Type Date Description Comments Marital Status ETOH Use Denies alcohol use Smoking Patient is a former smoker Quit 1985; max 1 ppd, began age 19 Exercise Type/Frequency Exercises regularly stretch band routine most days Allergies, Adverse Reactions, Alerts Date Description Reaction Status Severity Comments 05/08/2017 Diovan active Moderate Hives 05/08/2017 Oxycodone active Moderate hives 05/08/2017 Aspirin active chooses not to take 05/08/2017 Ibuprofen active 05/08/2017 Naproxen active Medications Medication Date Status Form Strength Qnty SIG Indications Ordering Provider Derick Mendoza 05/08 Active Capsules 10Meq 180ca 2 by mouth Stalin E. /2017 ER ps once a day Kei Milian Metoprolol 05/29 Active Tablets 100mg 90tab Take One I10 Stalin E. Succinate /2016 ER 24HR s Tablet By Rukhsana Mouth Every M.D. Day Alendronate Sodium 05/29 Active Tablets 70mg 12tab Take 1 M81.0 Stalin E. /2016 s Tablet By Rukhsana Mouth Every M.D. Week Multi Complete 05/08 Active Capsules 30cap daily Stalin E. s Kei Milian Famotidine 05/08 Active Tablets 40mg 90tab Take One Stalin E. s Tablet By Rukhsana Mouth Every M.D. Day Spironolactone Active Tablets 25mg 180ta 1 by mouth Stalin E. / bs twice daily Kei Milian Simvastatin Active Tablets 10mg 90tab take 1 Stalin E. / s tablet by Rukhsana mouth at M.D. bedtime Clonazepam Active Tablets 0.5mg 30tab 1 by mouth Stalin E. / s as needed Rukhsana for sleep M.DAudrey Ansley Allergy Active Tablets 60mg 1 by mouth Unknown / every day Cephalexin Active Capsules 500mg 1 by mouth Unknown /0000 daily in pm. Hydrochlorothiazid Active Capsules 12.5mg 90cap Take One Stalin E. e / s Capsule By Rukhsana Mouth Every M.D. Day Amlodipine Active Tablets 5mg 90tab Take One Stalin E. Besylate / s Tablet By Rukhsana Mouth Every M.D. Day Cranberry Active Tablets 450mg 1 by mouth Unknown /0000 every day Calcium 600 Active Tablets 600mg 1 by mouth Unknown /0000 every day Estrace Active Cream 0.1mg/GM use one / applicator full two times weekly Atenolol Hx Tablets 100mg 1 1/2 tabs I10 Unknown /0000 by mouth - every day 05/29 Omeprazole 00 Hx Capsules 20mg 1 by mouth Unknown /0000 every day - 05/08 Klor-Con M20 00 Hx Tablets 20Meq 90tab 1 by mouth Stalin E. /0000 FARNAZ walker every day Libra Milian M.D. 05/08 Immunizations CPT Code Status Date Vaccine Reaction Lot # [id number] Given 06/01/2018 Fluzone High Dose 15512 Given 05/08/2017 Pneumococcal Conjugate Vaccine 13 no reaction [id number] Valent For Intramuscular Use 09943 Given 03/14/2012 Pneumonia Vaccine 01351 Given 02/01/2012 Tdap - Tetanus/Diptheria/Acellular Pertussis Vital Signs Date Vital Result Comment 07/09/2018 Height 64.75 inches 5'4.75" Weight 161.00 lb Heart Rate 81 /min BP Systolic Sitting 136 mmHg BP Diastolic Sitting 90 mmHg O2 % BldC Oximetry 94 % BMI (Body Mass Index) 27.0 kg/m2 05/08/2018 Height 64.75 inches 5'4.75" Weight 171.00 lb Heart Rate 68 /min BP Systolic 118 mmHg BP Diastolic 68 mmHg O2 % BldC Oximetry 95 % BMI (Body Mass Index) 28.7 kg/m2 11/05/2017 Weight 175.00 lb Heart Rate 60 /min BP Systolic Sitting 138 mmHg BP Diastolic Sitting 82 mmHg O2 % BldC Oximetry 97 % 05/29/2017 Height 65 inches 5'5" Weight 176.25 lb Heart Rate 65 /min BP Systolic Sitting 140 mmHg BP Diastolic Sitting 78 mmHg Body Temperature 97.5 F O2 % BldC Oximetry 97 % BMI (Body Mass Index) 29.3 kg/m2 05/08/2017 Height 65 inches 5'5" Weight 179.25 lb Heart Rate 61 /min BP Systolic Sitting 144 mmHg BP Diastolic Sitting 80 mmHg Body Temperature 97.9 F O2 % BldC Oximetry 96 % BMI (Body Mass Index) 29.8 kg/m2 Results Test Date Test Result H/L Range Note Comp Metabolic Panel 07/04/2018 Sodium 137 mmol/L 135-145 Potassium 3.5 mmol/L 3.5-5.0 Chloride 103 mmol/L 101-111 Co2 Carbon Dioxide 23 mmol/L 22-32 Anion Gap 11 mmol/L 2-11 Glucose 141 mg/dL High 70-100 Blood Urea Nitrogen 19 mg/dL 6-24 Creatinine 0.83 mg/dL 0.51-0.95 BUN/Creatinine Ratio 22.9 High 8-20 Calcium 10.2 mg/dL 8.6-10.3 Total Protein 7.5 g/dL 6.4-8.9 Albumin 4.5 g/dL 3.2-5.2 Globulin 3.0 g/dL 2-4 Albumin/Globulin Ratio 1.5 1-3 Total Bilirubin 0.50 mg/dL 0.2-1.0 Alkaline Phosphatase 63 U/L 34-104 Alt 21 U/L 7-52 Ast 19 U/L 13-39 Egfr Non- 67.8 >60 Egfr 82.0 >60 1 Laboratory test finding 07/04/2018 Troponin-I (TnI) 0.00 ng/mL <0.04 CBC Auto Diff 07/04/2018 White Blood Count 9.4 10^3/uL 3.5-10.8 Red Blood Count 4.99 10^6/uL 4.00-5.40 Hemoglobin 15.8 g/dL 12.0-16.0 Hematocrit 46 % 35-47 Mean Corpuscular Volume 91 fL 80-97 Mean Corpuscular Hemoglobin 32 pg High 27-31 Mean Corpuscular HGB Conc 35 g/dL 31-36 Red Cell Distribution Width 13 % 10.5-15 Platelet Count 243 10^3/uL 150-450 Mean Platelet Volume 8.6 um3 7.4-10.4 Abs Neutrophils 7.9 10^3/uL High 1.5-7.7 Abs Lymphocytes 0.9 10^3/uL Low 1.0-4.8 Abs Monocytes 0.5 10^3/uL 0-0.8 Abs Eosinophils 0 10^3/uL 0-0.6 Abs Basophils 0 10^3/uL 0-0.2 Abs Nucleated RBC 0 10^3/uL Granulocyte % 84.1 % High 38-83 Lymphocyte % 9.9 % Low 25-47 Monocyte % 5.4 % 0-7 Eosinophil % 0.1 % 0-6 Basophil % 0.5 % 0-2 Nucleated Red Blood Cells % 0.1 Laboratory test finding 05/02/2018 Hemoglobin A1c (Glyco HGB) 5.3 % 4.0- 5.6 2 Comp Metabolic Panel 05/02/2018 Sodium 140 mmol/L 135-145 Potassium 4.0 mmol/L 3.5-5.0 Chloride 105 mmol/L 101-111 Co2 Carbon Dioxide 29 mmol/L 22-32 Anion Gap 6 mmol/L 2-11 Glucose 106 mg/dL High 70-100 Blood Urea Nitrogen 22 mg/dL 6-24 Creatinine 0.92 mg/dL 0.51-0.95 BUN/Creatinine Ratio 23.9 High 8-20 Calcium 9.4 mg/dL 8.6-10.3 Total Protein 6.9 g/dL 6.4-8.9 Albumin 4.5 g/dL 3.2-5.2 Globulin 2.4 g/dL 2-4 Albumin/Globulin Ratio 1.9 1-3 Total Bilirubin 0.70 mg/dL 0.2-1.0 Alkaline Phosphatase 62 U/L 34-104 Alt 20 U/L 7-52 Ast 20 U/L 13-39 Egfr Non- 60.2 >60 Egfr 72.8 >60 3 Lipid Profile (Trig/Chol/HDL) 05/02/2018 Triglycerides 100 mg/dL 4 Cholesterol 171 mg/dL 5 HDL Cholesterol 42.4 mg/dL 6 LDL Cholesterol 109 mg/dL 7 CBC Auto Diff 05/02/2018 White Blood Count 7.1 10^3/uL 3.5-10.8 Red Blood Count 5.10 10^6/uL 4.00-5.40 Hemoglobin 16.5 g/dL High 12.0-16.0 Hematocrit 48 % High 35-47 Mean Corpuscular Volume 93 fL 80-97 Mean Corpuscular Hemoglobin 32 pg High 27-31 Mean Corpuscular HGB Conc 35 g/dL 31-36 Red Cell Distribution Width 13 % 10.5-15 Platelet Count 168 10^3/uL 150-450 Mean Platelet Volume 8.8 um3 7.4-10.4 Abs Neutrophils 4.7 10^3/uL 1.5-7.7 Abs Lymphocytes 1.8 10^3/uL 1.0-4.8 Abs Monocytes 0.5 10^3/uL 0-0.8 Abs Eosinophils 0.1 10^3/uL 0-0.6 Abs Basophils 0 10^3/uL 0-0.2 Abs Nucleated RBC 0.1 10^3/uL Granulocyte % 66.4 % 38-83 Lymphocyte % 25.1 % 25-47 Monocyte % 7.0 % 0-7 Eosinophil % 1.0 % 0-6 Basophil % 0.5 % 0-2 Nucleated Red Blood Cells % 0.9 Laboratory test finding 05/29/2017 Hemoglobin A1c 5.6 5-7 Comp Metabolic Panel 05/22/2017 Sodium 137 mmol/L 133-145 Potassium 3.9 mmol/L 3.5-5.0 Chloride 103 mmol/L 101-111 Co2 Carbon Dioxide 28 mmol/L 22-32 Anion Gap 6 mmol/L 2-11 Glucose 134 mg/dL High 70-100 Blood Urea Nitrogen 18 mg/dL 6-24 Creatinine 0.86 mg/dL 0.51-0.95 BUN/Creatinine Ratio 20.9 High 8-20 Calcium 9.5 mg/dL 8.6-10.3 Total Protein 7.1 g/dL 6.4-8.9 Albumin 4.4 g/dL 3.2-5.2 Globulin 2.7 g/dL 2-4 Albumin/Globulin Ratio 1.6 1-3 Total Bilirubin 0.60 mg/dL 0.2-1.0 Alkaline Phosphatase 72 U/L 34-104 Alt 23 U/L 7-52 Ast 21 U/L 13-39 Egfr Non- 65.2 >60 Egfr 83.9 >60 8 Lipid Profile (Trig/Chol/HDL) 05/22/2017 Triglycerides 134 mg/dL 9 Cholesterol 156 mg/dL 10 HDL Cholesterol 41.1 mg/dL 11 LDL Cholesterol 88 mg/dL 12 Laboratory test finding 05/22/2017 Hepatitis C Antibody Nonreactive Nonreactive 1 Because ethnic data is not always [...] in selective patients <6.0%. Please refer to [place] [employer] diabetic care guidelines for further [...] mg/dL Very High: >189 mg/dL Procedures Date CPT Code Description Status 11/25/2017 Mammogram Completed 05/13/2017 Bone Mineral Density Test Completed 11/08/2016 Mammogram Completed 12/08/2015 14857 ECHO Transthorasic Realtime 2D W Doppler & Color Flow Completed Hosp 12/08/2015 51413 Treadmill Interp/Report Only Completed 12/08/2015 66831 Stress Test Supervsn W/Out I/R Completed 12/08/2015 08038 EKG, Interpretation Only Completed 10/27/2015 Mammogram Completed 04/11/2011 98044 Xray Knee 3 Views Completed 04/11/2011 84602 Rad Exam; Knee, Ap&L Completed 01/13/2010 Colonoscopy Completed 09/18/2008 71988 Treadmill Interp/Report Only Completed 09/18/2008 50790 Treadmill Interp/Report Only Completed 09/18/2008 16150 Stress Test Supervsn W/Out I/R Completed Encounters Type Date Location Provider CPT E/M Dx Office Visit 11/05/2017 9:00a [facility] Stalin Milian, 68166 I10 - Graham Choudhury R73.01 E78.5 K21.9 M81.0 Office Visit 05/29/2017 9:00a [facility] Stalin Milian, 02117 M81.0 - Graham Choudhury K21.9 I10 R73.01 Office Visit 05/08/2017 9:20a [facility] - Stalin Milian, 70866 I10 Graham Choudhury E78.5 K21.9 Z13.820 Z11.59 M15.0 Z23 Office Visit 12/08/2015 1:37p [facility], Reji Amado, 96860 R00.2 Golden Choudhury E78.5 I10 Office Visit 12/07/2015 1:36p [facility],pc Jaky Cloud, 33692 R11.0 Hospitalists E78.5 R00.2 I10 Office Visit 04/11/2011 1:30p [facility] M.D. 49201 716.96 C.M.A. Plan of Care Future Appointment(s):11/07/2018 9:00 am - Stalin Milian M.D. at [facility] - Adohtzwwv21/07/2018 - Stalin Milian M.D.R00.0 Tachycardia, unspecifiedComments:Transient "rapid" heart rate felt as a faster "pounding" in her ears 07/04. Sx passed after about 30min and ER eval, labs ok. (+) GI upset sx the day before with some watery stools, nausea sx. No fevers , chills. No recurrent sx at present and her GI sx resolved. Observation advisedFollow up:October as scheduled or prn
[2018-07-29 19:01] LABS: Urine Appearance Clear; Urine Blood 1+ (Negative); Urine Color Straw; Urine Ketones Negative (Negative); Urine Protein Negative (Negative); Urine Red Blood Cell Trace(0-2/hpf) (Absent); Urine Specific Gravity 1.006 (1.010-1.030); Urine Urobilinogen Negative (Negative); Urine White Blood Cell 2+(11-20/hpf) (Absent)
[2018-07-29] MEDS ORDERED: NS 0.9% 1000 ML* 1,000 ML IV ONE (19:36)
[2018-07-29] MEDS ORDERED: Iodixanol* (CONTRAST) 320 MG/ML 100 ML SDV IV ONE (19:43)
[2018-07-29 20:33] LABS: Urine Appearance Cloudy; Urine Blood 1+ (Negative); Urine Color Straw; Urine Ketones Negative (Negative); Urine Protein Negative (Negative); Urine Red Blood Cell 1+(3-5/hpf) (Absent); Urine Specific Gravity 1.004 (1.010-1.030); Urine Urobilinogen Negative (Negative); Urine White Blood Cell 3+(>20/hpf) (Absent)
[2018-07-29] MEDS ORDERED: Sulfamethox/Trimethoprim DS 800/160* TAB PO ONE (21:05)
[2018-07-29] MEDS ORDERED: Potassium Chlor TAB* 20 MEQ TAB.ER PO ONE (21:08)
[2018-07-29 22:21] VITALS: BP 169/81
== END 2018-07-29 22:21 | disposition home or self-care (01) ==
LOC: ED 17:23
DX: R07.89 Other chest pain (principal); R00.2 Palpitations; R00.0 Tachycardia, unspecified; N39.0 Urinary tract infection, site not specified; Z87.440 Personal history of urinary (tract) infections; I10 Essential (primary) hypertension; E87.6 Hypokalemia; R91.1 Solitary pulmonary nodule; Z96.653 Presence of artificial knee joint, bilateral; Z88.6 Allergy status to analgesic agent; Z88.5 Allergy status to narcotic agent; Z88.8 Allergy status to other drugs, medicaments and biological substances; Z82.49 Family history of ischemic heart disease and other diseases of the circulatory system; Z87.891 Personal history of nicotine dependence
CPT/HCPCS: 36415; 71045; 71275; 80053; 81003; 81015; 82550; 82553; 83605; 83880; 84436; 84443; 84484; 85025; 85379; 85610; 85730; 87086; 93005; 96361; 96374; 99283; A9270-GY; J2405; Q9967

== ENCOUNTER 2023-04-22 14:21 | Inpatient (IN) ==
[2023-04-22] MEDS ORDERED: fentaNYL 100 mcg/2 ml 50 MCG/ML VIAL IV SLOW PU ONE (14:57)
[2023-04-22 16:01] LABS: ABS Lymphocytes 0.7 10^3/uL (1.0-4.8); ABS Monocytes 0.4 10^3/uL (0.0-0.9); ABS Neutrophils 13.9 10^3/uL (1.5-7.6); ABS Nucleated RBC 0.01 10^3/ul; Hematocrit 43.2 % (35-45); Lymphocyte % 4.6 %; Mean Corpuscular Hemoglobin 32.1 pg (27-33); Mean Corpuscular Hgb Conc 34.7 g/dL (31-36); Mean Corpuscular Volume 92.6 fL (80-97); Mean Platelet Volume 8.1 fL (7.5-11.2); Platelet Count 171 10^3/uL (150-450); Red Blood Count 4.67 10^6/uL (3.63-4.92); Red Cell Distribution Width 13.3 % (12-17); White Blood Count 15.1 10^3/uL (3.8-11.8)
[2023-04-22 16:16] LABS: Activated Partial Thrombo Time 30.4 seconds (26.0-38.0); INR 1.07 (0.83-1.13)
[2023-04-22 16:21] LABS: Albumin 4.3 g/dL (3.2-5.2); Albumin/Globulin Ratio 1.8 (1-3); Creatinine, Serum 0.8 mg/dL (0.51-0.95); Globulin 2.4 g/dL (2-4); Potassium 3.5 mmol/L (3.5-5.0); Total Bilirubin 0.5 mg/dL (0.2-1.0); Total Protein 6.7 g/dL (6.4-8.9); eGFR CKD-EPI 76.3 (>60)
[2023-04-22] MEDS ORDERED: Al Hydrox/Mg Hydrox/Simet LIQ 30 ML UDC PO PRN (16:40)
[2023-04-22] MEDS ORDERED: fentaNYL 100 mcg/2 ml 50 MCG/ML VIAL IV SLOW PU PRN (16:43)
[2023-04-22] MEDS: Acetaminophen IV 1 GM/100ML 1,000 MG/100 ML BAG IV PRN (17:01)
[2023-04-22] MEDS: fentaNYL 100 mcg/2 ml 50 MCG/ML VIAL IV SLOW PU PRN ×3 (19:25→23:31)
[2023-04-22] MEDS ORDERED: Heparin 5000 UNITS/ML 1 mL VIAL SUBCUT SCH (22:00)
[2023-04-23] MEDS: fentaNYL 100 mcg/2 ml 50 MCG/ML VIAL IV SLOW PU PRN ×4 (02:17→11:07)
[2023-04-23 06:45] LABS: ABS Basophils 0.1 10^3/uL (0.0-0.1); ABS Monocytes 0.5 10^3/uL (0.0-0.9); ABS Neutrophils 10.1 10^3/uL (1.5-7.6); ABS Nucleated RBC 0.02 10^3/ul; Eosinophil % 0.2 %; Hematocrit 42.5 % (35-45); Hemoglobin 14.7 g/dL (11.5-14.3); Lymphocyte % 8.7 %; Mean Corpuscular Hgb Conc 34.6 g/dL (31-36); Mean Corpuscular Volume 92.5 fL (80-97); Mean Platelet Volume 8.7 fL (7.5-11.2); Nucleated Red Blood Cells % 0.1 /100 WBC (0.0-0.4); Platelet Count 164 10^3/uL (150-450); Red Blood Count 4.59 10^6/uL (3.63-4.92); White Blood Count 11.8 10^3/uL (3.8-11.8)
[2023-04-23 07:05] LABS: Calcium 8.7 mg/dL (8.6-10.3); Creatinine, Serum 0.74 mg/dL (0.51-0.95); Potassium 3.3 mmol/L (3.5-5.0); eGFR CKD-EPI 83.8 (>60)
[2023-04-23] MEDS ORDERED: Potassium Chlor 20 meq TAB.ER PO ONE (10:34)
[2023-04-23] MEDS ORDERED: Potassium Chloride LIQUID 20 MEQ/15 ML LIQUID PO ONE (11:35)
[2023-04-23] MEDS ORDERED: Ondansetron 4 mg VIAL 2 MG/ML 2 ml VIAL ONE ×2 (12:00→18:27)
[2023-04-23] MEDS ORDERED: Ondansetron 4 mg VIAL 2 MG/ML 2 ml VIAL IV PRN (12:06)
[2023-04-23] MEDS ORDERED: [UNRECOGNIZED DRUG - OTHER] IV ONE (14:05)
[2023-04-23] MEDS ORDERED: CLINDAMYCIN IV ONE (14:05)
[2023-04-23] MEDS ORDERED: HYDROmorphone 1 MG/1 ML SYRINGE ONE (14:45)
[2023-04-23] MEDS: HYDROmorphone 1 MG/1 ML SYRINGE IV SLOW PU PRN ×2 (14:46→14:58)
[2023-04-23] MEDS ORDERED: Famotidine IV 10 MG/ML 2 ml VIAL (20 mg) ONE (14:57)
[2023-04-23] MEDS ORDERED: Famotidine IV 10 MG/ML 2 ml VIAL (20 mg) IV SLOW PU ONE (15:00)
[2023-04-23] MEDS ORDERED: Bupivacaine 0.5% SDV PF 30ML VIAL ONE (15:30)
[2023-04-23] MEDS ORDERED: Propofol 10 MG/ML 20 ML BTL ONE (15:38)
[2023-04-23] MEDS ORDERED: Lidocaine 2% PF 5 ML VIAL ONE (15:38)
[2023-04-23] MEDS ORDERED: fentaNYL 100 mcg/2 ml 50 MCG/ML VIAL ONE ×2 (15:39→17:31)
[2023-04-23] MEDS ORDERED: Rocuronium 50 mg VIAL 10 mg/ml 5 ml VIAL (50 mg) ONE (15:39)
[2023-04-23] MEDS ORDERED: Midazolam 2 mg/2 ml VIAL 1 mg/ml 2 ml VIAL (2 mg) ONE (15:39)
[2023-04-23] MEDS ORDERED: Bupivacaine 0.25% SDV 30 ML ONE (16:33)
[2023-04-23] MEDS ORDERED: Dexamethasone IV 4 MG/ML VIAL 1 ml VIAL ONE (16:59)
[2023-04-23] MEDS ORDERED: Phenylephrine IV 10 MG/ML 1 ml VIAL ONE (16:59)
[2023-04-23] MEDS ORDERED: Polyethylene Glycol 3350 17 GM PACKET PO PRN (18:10)
[2023-04-23] MEDS ORDERED: Senna TAB 8.6 mg TAB PO PRN (18:10)
[2023-04-23] MEDS ORDERED: Acetaminophen IV 1 GM/100ML 1,000 MG/100 ML BAG IV ONE (18:28)
[2023-04-23] MEDS ORDERED: Clindamycin 900 MG/50 **NS BAG 900 MG/50 ML BAG IVPB SCH (20:00)
[2023-04-24] MEDS: fentaNYL 100 mcg/2 ml 50 MCG/ML VIAL IV SLOW PU PRN ×2 (03:02→10:18)
[2023-04-24] MEDS: Acetaminophen IV 1 GM/100ML 1,000 MG/100 ML BAG IV PRN (05:45)
[2023-04-24 06:13] LABS: ABS Lymphocytes 0.4 10^3/uL (1.0-4.8); ABS Monocytes 0.5 10^3/uL (0.0-0.9); ABS Neutrophils 12.9 10^3/uL (1.5-7.6); Hematocrit 39.9 % (35-45); Hemoglobin 13.8 g/dL (11.5-14.3); Lymphocyte % 2.7 %; Mean Corpuscular Hemoglobin 32.3 pg (27-33); Mean Corpuscular Hgb Conc 34.6 g/dL (31-36); Mean Corpuscular Volume 93.3 fL (80-97); Mean Platelet Volume 8.2 fL (7.5-11.2); Platelet Count 150 10^3/uL (150-450); Red Blood Count 4.27 10^6/uL (3.63-4.92); Red Cell Distribution Width 13.7 % (12-17); White Blood Count 13.8 10^3/uL (3.8-11.8)
[2023-04-24] MEDS: Clindamycin 900 MG/50 **NS BAG 900 MG/50 ML BAG IVPB SCH ×2 (06:16→15:18)
[2023-04-24 06:36] LABS: Calcium 8.1 mg/dL (8.6-10.3); Creatinine, Serum 0.86 mg/dL (0.51-0.95); Magnesium 1.9 mg/dL (1.9-2.7); Potassium 3.8 mmol/L (3.5-5.0)
[2023-04-24] MEDS: Enoxaparin 40 MG/0.4 ML SYR SUBCUT SCH (10:18)
[2023-04-24] MEDS ORDERED: Morphine 2 MG/ML SYRINGE IV PRN (10:21)
[2023-04-24] MEDS: HYDROcodone/ACETAMIN 5/325 mg TAB PO PRN ×3 (15:15→23:13)
[2023-04-24] MEDS ORDERED: fentaNYL 100 mcg/2 ml 50 MCG/ML VIAL IV SLOW PU PRN (16:22)
[2023-04-24] MEDS: Magnesium Hydroxide LIQ 30 ML UDC PO PRN (20:57)
[2023-04-24] MEDS: Clindamycin 600 MG/NS BAG IV SCH (22:26)
[2023-04-24] MEDS: Clindamycin 300 MG/D5W BAG 300 MG/50 ML BAG IV SCH (23:07)
[2023-04-25] MEDS: HYDROcodone/ACETAMIN 5/325 mg TAB PO PRN ×2 (03:24→15:05)
[2023-04-25] MEDS: Clindamycin 600 MG/NS BAG IV SCH (05:56)
[2023-04-25] MEDS: Clindamycin 300 MG/D5W BAG 300 MG/50 ML BAG IV SCH (06:36)
[2023-04-25] MEDS: Magnesium Hydroxide LIQ 30 ML UDC PO PRN (08:09)
[2023-04-25] MEDS ORDERED: Clindamycin 600 MG/NS BAG IV ONE ×2 (10:00→14:00)
[2023-04-25] MEDS: Enoxaparin 40 MG/0.4 ML SYR SUBCUT SCH (11:21)
[2023-04-25] MEDS ORDERED: Clindamycin 600 MG/D5W BAG 600 MG/50 ML BAG IV ONE (14:30)
[2023-04-26] MEDS: HYDROcodone/ACETAMIN 5/325 mg TAB PO PRN ×4 (04:12→21:06)
[2023-04-26] MEDS: Enoxaparin 40 MG/0.4 ML SYR SUBCUT SCH (11:43)
[2023-04-27] MEDS: HYDROcodone/ACETAMIN 5/325 mg TAB PO PRN (10:10)
[2023-04-27 10:33] VITALS: BP 121/60
[2023-04-27] MEDS: Enoxaparin 40 MG/0.4 ML SYR SUBCUT SCH (11:25)
== END 2023-04-27 12:25 | disposition home or self-care (01) | DRG 522 ==
LOC: ED 14:21 → SUATTDRO 16:40 → EDHOLD 16:40 → SSU 19:22
PROVIDERS: ADMIT Internal Medicine; ATTEND Internal Medicine